=== PATIENT | male | born 1985 | race Caucasian/White ===

== ENCOUNTER 2021-10-20 15:10 | Outpatient (CLI) | payer BC, SELFPAY ==
[2021-10-20 20:46] LABS: Creatine Kinase* 90 U/L (54-186)
== END 2021-10-20 15:11 | disposition home or self-care (01) ==
LOC: LKVREF 15:12
PROVIDERS: Visit Provider Family Medicine
DX: M62.82 Rhabdomyolysis (principal); R53.83 Other fatigue
CPT/HCPCS: 82550